=== PATIENT | male | born 2005 | race Hispanic/Latino ===

== ENCOUNTER → 2023-06-02 | Emergency (ER) | payer OTHER ==
[~2023-06-02] MED LIST: HYDROCODONE/APAP 5/325 MG TAB ONE
--- NOTE | 2023-06-02 17:00 | RAD REPORT ---
EXAM DESCRIPTION: RAD - Knee Left 3 View - 06/02/2023 4:54 pm CLINICAL HISTORY: laceration Pain and swelling COMPARISON: No comparisons FINDINGS: No fracture, dislocation or joint effusion.
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
[2023-06-02 19:42] VITALS: BP 128/105; TEMP 98.5; O2SAT 97
== END ==
LOC: ER 15:01
DX: S80.212A Abrasion, left knee, initial encounter (principal); V49.49XA Driver injured in collision with other motor vehicles in traffic accident, initial encounter
CPT/HCPCS: 71046; 99283